=== PATIENT | male | born 1985 | race Caucasian/White ===

== ENCOUNTER 2024-04-13 17:50 | Emergency (ER) | payer OTHER ==
[2024-04-13 18:10] VITALS: BP 161/117; O2SAT 97
== END 2024-04-13 18:27 | disposition left against medical advice (07) ==
LOC: ED 17:50
DX: Z53.21 Procedure and treatment not carried out due to patient leaving prior to being seen by health care provider (principal)
CPT/HCPCS: 80053; 82077; 83690; 85025